=== PATIENT | male | born 1960 | race Two or more races ===

== ENCOUNTER 2021-08-14 09:58 | Inpatient (IN) | payer MEDICAID, OTHER ==
[~2021-08-14] VITALS: Ht 177.8 cm; Wt 112.6 kg
[2021-08-14 11:06] LABS: Basophils # (auto) 0 10 ^3/uL (0-0.2); Eosinophils # (auto) 0 10 ^3/uL (0-0.8); Monocytes # (auto) 0.4 10 ^3/uL (0-1.3); Neutrophils # (auto) 2.3 10 ^3/uL (1.6-8.6)
[2021-08-14 11:08] LABS: Basophils % (auto) 0.4 % (0.0-2.0); Hematocrit 44.1 % (41.0-53.0); Hemoglobin 14.7 g/dL (13.5-17.5); Lymphocytes # (auto) 0.7 10 ^3/uL (0.4-5.4); Mean Corpuscular Hgb Conc. 33.4 g/dL (32.0-36.0); Mean Corpuscular Volume 71.9 fL (80.0-100.0); Monocytes % (auto) 11.4 % (0.0-12.0); Neutrophils % (auto) 68.2 % (37.0-80.0); Nucleated Red Blood Cells % 0.4 %; Red Blood Cells 6.13 10^6/uL (4.5-5.90); White Blood Cell 3.4 10^3/uL (4.4-10.8)
[2021-08-14 11:18] LABS: Albumin 2.6 g/dL (3.4-5.0); Calcium 7.4 mg/dL (8.5-10.1); Potassium 3.5 mmol/L (3.5-5.1)
[2021-08-14 11:23] LABS: Bilirubin, Total 0.6 mg/dL (0.2-1.0); Total Protein 6.6 g/dL (6.4-8.2)
[2021-08-14] MEDS ORDERED: cefTRIAXone 1GM/50ML D5W 50 ML IV ONE (11:30)
[2021-08-14] MEDS ORDERED: DexAMETHasone SOD PHOS 10MG/1ML VIAL INJ IV ONE (11:30)
[2021-08-14] MEDS ORDERED: AZITHROMYCIN 500MG/ 250ML 250 ML IV ONE (11:30)
[2021-08-14] MEDS ORDERED: SODIUM CHLORIDE 0.9% 1,000 ML IVB ONE (11:30)
[2021-08-14] MEDS ORDERED: SODIUM CHLORIDE 0.9% 1,000 ML IV ONE (11:30)
[2021-08-14 12:04] LABS: INR 1.03 (0.9-1.15); Partial Thromboplastin Time 38.9 sec (23.6-33.0)
[2021-08-14 12:06] LABS: Magnesium 1.9 mg/dL (1.6-2.6)
[2021-08-14 12:46] LABS: Urine Bacteria FEW /hpf (None Seen); Urine Blood Negative /uL (Negative); Urine Specific Gravity 1.009 (1.001-1.035); Urine WBC 1 /hpf (0 - 3)
[2021-08-14] MEDS ORDERED: ZINC SULFATE 220mg CAP or TAB PO ONE (16:00)
[2021-08-14] MEDS ORDERED: ASCORBIC ACID 500 MG TAB PO ONE (16:00)
[2021-08-14] MEDS ORDERED: CHOLECALCIFEROL (VITD3) 2,000 UNIT CAP/TAB PO ONE (16:00)
[2021-08-14] MEDS ORDERED: MORPHINE SULFATE INJECTION 2 MG/ML SYRG IV PRN ×3 (16:15→16:45)
[2021-08-14] MEDS ORDERED: NITROGLYCERIN 0.4 MG SL TAB SL PRN ×2 (16:15→16:45)
[2021-08-14] MEDS ORDERED: DEXTROSE (50%) 50ML SYRG IV PRN (16:15)
[2021-08-14] MEDS ORDERED: LORazepam 0.5 MG TAB PO PRN (16:45)
[2021-08-14] MEDS: SOD CHL 0.45% 1,000 ML IV SCH (16:45)
[2021-08-14] MEDS ORDERED: HYDROcodone-ACET 5/325MG TAB PO PRN (16:45)
[2021-08-14] MEDS ORDERED: DOCUSATE SOD 100 MG CAP PO PRN (16:45)
[2021-08-14] MEDS ORDERED: ALUM & MAG HYDROX-SIMETH LIQ(MAALOX) 30 ML PO PRN (16:45)
[2021-08-14] MEDS ORDERED: ONDANSETRON HCL 4 MG/2 ML VIAL IV PRN (16:45)
[2021-08-14] MEDS ORDERED: PROMETHAZINE W/CODEINE 5 ML ORAL SYRUP PO PRN (17:00)
[2021-08-14] MEDS ORDERED: hydrALAZINE HCL 20 MG/ML VL IV PRN (17:00)
[2021-08-14] MEDS ORDERED: PROMETHAZINE W/CODEINE 5 ML ORAL SYRUP PO ONE (17:00)
[2021-08-14] MEDS ORDERED: MEROPENEM 1GM IVPB 100 ML IV ONE (17:00)
[2021-08-14] MEDS ORDERED: FAMOTIDINE (10MG/ML) 2ML VL IV ONE (17:00)
[2021-08-14] MEDS: ACCU-CHEK COMFORT CURVE STRIP VI SCH ×2 (17:41→21:06)
[2021-08-14] MEDS ORDERED: levoFLOXacin 750MG 150 ML IV ONE (18:00)
[2021-08-14 18:01] VITALS: BP 129/84
[2021-08-14 18:10] VITALS: BP 129/84
[2021-08-14] MEDS ORDERED: PNEUMOCOCCAL VACC POLYS 25 MCG/0.5 ML VIAL IM ONE (18:30)
[2021-08-14] MEDS ORDERED: LISI20TA28 PO (18:41)
[2021-08-14] MEDS ORDERED: POM SC (18:41)
[2021-08-14] MEDS: InsuLIN REG 1unit/0.01ml Soln (100units/ml) SC SCH ×2 (18:47→21:12)
[2021-08-14 19:22] LABS: Alcohol, Urine < 3.0 mg/dL (0-10); Amphetamine Screen, Urine NEGATIVE (NEGATIVE); Barbiturate Scree,Urine NEGATIVE (NEGATIVE); Benzodiazephine Screen, Urine NEGATIVE (NEGATIVE); Cannabinoid Screen, Urine NEGATIVE (NEGATIVE); Cocaine Screen, Urine NEGATIVE (NEGATIVE); Opiate Scree,Urine NEGATIVE (NEGATIVE); Phencyclidine Screen, Urine NEGATIVE (NEGATIVE)
[2021-08-14 19:41] LABS: Cholesterol 66 mg/dL (< 200)
[2021-08-14 19:43] LABS: HDL Cholesterol 15 mg/dL (40-59); LDL Cholesterol 40 mg/dL (< 100); Triglycerides 99 mg/dL (< 150)
[2021-08-14 20:27] LABS: Thyroid Stimulating Hormone 0.68 uIU/mL (0.358-3.74)
[2021-08-14] MEDS: ATORVASTATIN 20 MG TAB PO SCH (21:17)
[2021-08-14] MEDS: ENOXAPARIN SOD 40 MG/0.4 ML SYRINGE SC SCH (21:18)
[2021-08-14 22:00] VITALS: BP 129/80
[2021-08-14] MEDS: BUDESONIDE (INHALATION) 180 MCG IH IN SCH (23:47)
[2021-08-14] MEDS: ALBUTEROL SULF HFA 90MCG INH 200DOSE IN PRN (23:48)
[2021-08-15] MEDS: MEROPENEM 1GM IVPB 100 ML IV SCH ×2 (00:22→11:34)
[2021-08-15 05:00] VITALS: BP 116/80
[2021-08-15] MEDS: ACCU-CHEK COMFORT CURVE STRIP VI SCH ×4 (06:30→22:07)
[2021-08-15] MEDS: InsuLIN REG 1unit/0.01ml Soln (100units/ml) SC SCH ×4 (06:35→22:00)
[2021-08-15 07:04] LABS: Basophils # (auto) 0 10 ^3/uL (0-0.2); Basophils % (auto) 0.2 % (0.0-2.0); Eosinophils # (auto) 0 10 ^3/uL (0-0.8); Hemoglobin 14.6 g/dL (13.5-17.5); Neutrophils # (auto) 1.9 10 ^3/uL (1.6-8.6); White Blood Cell 3.3 10^3/uL (4.4-10.8)
[2021-08-15] MEDS: ALBUTEROL SULF HFA 90MCG INH 200DOSE IN PRN (07:05)
[2021-08-15] MEDS: BUDESONIDE (INHALATION) 180 MCG IH IN SCH ×2 (07:05→23:22)
[2021-08-15 07:06] LABS: Hematocrit 45.7 % (41.0-53.0); Neutrophils % (auto) 59.1 % (37.0-80.0); Nucleated Red Blood Cells % 0.1 %; Red Blood Cells 6.35 10^6/uL (4.5-5.90); Red Cell Distribution Width 14.8 % (11.8-14.3)
[2021-08-15 07:08] LABS: Lymphocytes # (auto) 0.8 10 ^3/uL (0.4-5.4); Lymphocytes % (auto) 24.2 % (10.0-50.0); Mean Corpuscular Volume 71.9 fL (80.0-100.0); Monocytes # (auto) 0.5 10 ^3/uL (0-1.3); Monocytes % (auto) 16.5 % (0.0-12.0)
[2021-08-15 07:19] LABS: Albumin 2.3 g/dL (3.4-5.0); Calcium 7.8 mg/dL (8.5-10.1); Magnesium 2.2 mg/dL (1.6-2.6); Potassium 4.2 mmol/L (3.5-5.1); Uric Acid 4.3 mg/dL (3.5-7.2)
[2021-08-15 07:23] LABS: BUN/Creatinine Ratio 12.8; Bilirubin, Total 0.4 mg/dL (0.2-1.0); INR 1.06 (0.9-1.15); Partial Thromboplastin Time 37.3 sec (23.6-33.0); Phosphorus 2.3 mg/dL (2.5-4.90); Total Protein 6.4 g/dL (6.4-8.2)
[2021-08-15 09:00] VITALS: BP 125/83
[2021-08-15] MEDS: SOD CHL 0.45% 1,000 ML IV SCH (09:25)
[2021-08-15] MEDS ORDERED: FAMOTIDINE (10MG/ML) 2ML VL IV SCH (10:00)
[2021-08-15 11:17] VITALS: BP 128/81
[2021-08-15] MEDS: ENOXAPARIN SOD 40 MG/0.4 ML SYRINGE SC SCH ×2 (11:34→22:07)
[2021-08-15] MEDS: DexAMETHasone SOD PHOS 10MG/1ML VIAL INJ IV SCH (11:34)
[2021-08-15] MEDS: levoFLOXacin 750MG 150 ML IV SCH (11:37)
[2021-08-15] MEDS: ASPirin 81 mg TAB PO SCH (12:02)
[2021-08-15] MEDS: CHOLECALCIFEROL (VITD3) 2,000 UNIT CAP/TAB PO SCH (12:03)
[2021-08-15] MEDS: ASCORBIC ACID 1,000 MG TAB PO SCH (12:03)
[2021-08-15] MEDS: ZINC SULFATE 220mg CAP or TAB PO SCH (12:03)
[2021-08-15 13:00] VITALS: BP 125/72
[2021-08-15] MEDS ORDERED: REMDESIVIR PER PHARMACY 0 ML IV SCH (13:15)
[2021-08-15] MEDS ORDERED: REMDESIVIR 200 MG in NS 210ml LOADING DOSE ADULT IV ONE (15:00)
[2021-08-15] MEDS ORDERED: guaiFENesin-DM 100/10mg/5ml SYR PO PRN (16:30)
[2021-08-15 17:00] VITALS: BP 124/77
[2021-08-15 22:00] VITALS: BP 123/81
[2021-08-15] MEDS: FAMOTIDINE 20 MG TAB PO SCH (22:07)
[2021-08-15] MEDS: ATORVASTATIN 20 MG TAB PO SCH (22:07)
[2021-08-16 05:21] VITALS: BP 116/77
[2021-08-16] MEDS: ACCU-CHEK COMFORT CURVE STRIP VI SCH ×4 (06:14→22:00)
[2021-08-16] MEDS: InsuLIN REG 1unit/0.01ml Soln (100units/ml) SC SCH ×4 (06:14→22:15)
[2021-08-16 08:22] LABS: Potassium 4.3 mmol/L (3.5-5.1)
[2021-08-16 08:28] LABS: Albumin 2.3 g/dL (3.4-5.0); BUN/Creatinine Ratio 16.7; Calcium 8.2 mg/dL (8.5-10.1)
[2021-08-16 08:30] LABS: Bilirubin, Total 0.4 mg/dL (0.2-1.0); Total Protein 5.8 g/dL (6.4-8.2)
[2021-08-16 08:41] VITALS: BP 111/71
[2021-08-16] MEDS: DexAMETHasone SOD PHOS 10MG/1ML VIAL INJ IV SCH (08:48)
[2021-08-16] MEDS: ZINC SULFATE 220mg CAP or TAB PO SCH (08:49)
[2021-08-16] MEDS: levoFLOXacin 750MG 150 ML IV SCH (08:49)
[2021-08-16] MEDS: ENOXAPARIN SOD 40 MG/0.4 ML SYRINGE SC SCH ×2 (08:49→22:00)
[2021-08-16] MEDS: ASPirin 81 mg TAB PO SCH (08:50)
[2021-08-16] MEDS: ASCORBIC ACID 1,000 MG TAB PO SCH (08:50)
[2021-08-16] MEDS: FUROSEMIDE 20 MG TAB PO SCH (08:50)
[2021-08-16] MEDS: CHOLECALCIFEROL (VITD3) 2,000 UNIT CAP/TAB PO SCH (08:51)
[2021-08-16] MEDS: FAMOTIDINE 20 MG TAB PO SCH ×2 (08:51→22:00)
[2021-08-16] MEDS ORDERED: IVERMECTIN 3 MG TAB PO SCH (10:00)
[2021-08-16 10:59] LABS: Free T3 2.08 pg/mL (2.3-4.2); Free T4 (Free Thyroxine) 0.89 ng/dL (0.89-1.76)
[2021-08-16 12:41] VITALS: BP 112/81
[2021-08-16] MEDS ORDERED: DEXTROSE (50%) 50ML SYRG IV PRN (13:00)
[2021-08-16 14:05] LABS: Hepatitis A Ab IgM Negative
[2021-08-16 14:21] LABS: Hepatitis B Core IgM Negative
[2021-08-16 14:23] LABS: Hepatitis C Antibody Negative (Negative)
[2021-08-16] MEDS: BUDESONIDE (INHALATION) 180 MCG IH IN SCH ×2 (15:12→22:18)
[2021-08-16] MEDS: ALBUTEROL SULF HFA 90MCG INH 200DOSE IN PRN ×2 (15:12→23:27)
[2021-08-16] MEDS: REMDESIVIR 100mg 100 MG in SODIUM CHL 0.9% 230 ML IV SCH (15:51)
[2021-08-16 16:39] VITALS: BP 118/79
[2021-08-16 20:00] VITALS: BP 118/83
[2021-08-16] MEDS: ATORVASTATIN 20 MG TAB PO SCH (22:00)
[2021-08-16] MEDS: INSULIN LANTUS (GLARGINE) 1 /0.01ml (100units/ml) SC SCH (22:15)
[2021-08-17 05:00] VITALS: BP 125/78
[2021-08-17] MEDS: ACCU-CHEK COMFORT CURVE STRIP VI SCH ×4 (06:18→22:21)
[2021-08-17] MEDS: InsuLIN REG 1unit/0.01ml Soln (100units/ml) SC SCH ×4 (07:00→22:28)
[2021-08-17 08:04] LABS: Potassium 4.5 mmol/L (3.5-5.1)
[2021-08-17 08:15] LABS: Albumin 2.5 g/dL (3.4-5.0); BUN/Creatinine Ratio 20.9; Bilirubin, Total 0.4 mg/dL (0.2-1.0); Total Protein 5.9 g/dL (6.4-8.2)
[2021-08-17 09:00] VITALS: BP 120/78
[2021-08-17] MEDS: BUDESONIDE (INHALATION) 180 MCG IH IN SCH ×2 (09:11→20:48)
[2021-08-17] MEDS: ALBUTEROL SULF HFA 90MCG INH 200DOSE IN PRN ×2 (09:11→20:49)
[2021-08-17] MEDS: ENOXAPARIN SOD 40 MG/0.4 ML SYRINGE SC SCH ×2 (10:08→22:21)
[2021-08-17] MEDS: levoFLOXacin 500 MG TAB PO SCH (10:08)
[2021-08-17] MEDS: ZINC SULFATE 220mg CAP or TAB PO SCH (10:08)
[2021-08-17] MEDS: DexAMETHasone SOD PHOS 10MG/1ML VIAL INJ IV SCH (10:08)
[2021-08-17] MEDS: ASCORBIC ACID 1,000 MG TAB PO SCH (10:08)
[2021-08-17] MEDS: ASPirin 81 mg TAB PO SCH (10:08)
[2021-08-17] MEDS: FAMOTIDINE 20 MG TAB PO SCH ×2 (10:08→22:21)
[2021-08-17] MEDS: CHOLECALCIFEROL (VITD3) 2,000 UNIT CAP/TAB PO SCH (10:09)
[2021-08-17] MEDS: FUROSEMIDE 20 MG TAB PO SCH (10:09)
[2021-08-17] MEDS: INSULIN LANTUS (GLARGINE) 1 /0.01ml (100units/ml) SC SCH ×2 (10:33→22:28)
[2021-08-17 13:00] VITALS: BP 118/71
[2021-08-17] MEDS: REMDESIVIR 100mg 100 MG in SODIUM CHL 0.9% 230 ML IV SCH (15:30)
[2021-08-17 17:00] VITALS: BP_SYST 135; BP_SYST 152; BP_DIAS 81; BP_DIAS 86
[2021-08-17 22:00] VITALS: BP 120/77
[2021-08-17] MEDS: ATORVASTATIN 20 MG TAB PO SCH (22:21)
[2021-08-18 05:00] VITALS: BP 124/79
[2021-08-18] MEDS: ACCU-CHEK COMFORT CURVE STRIP VI SCH ×4 (06:09→22:00)
[2021-08-18] MEDS: InsuLIN REG 1unit/0.01ml Soln (100units/ml) SC SCH ×4 (06:09→22:04)
[2021-08-18 07:24] LABS: Hemoglobin 14.8 g/dL (13.5-17.5); Mean Corpuscular Hemoglobin 22.9 pg (28.0-32.0)
[2021-08-18 07:27] LABS: Mean Corpuscular Hgb Conc. 32.1 g/dL (32.0-36.0); Mean Corpuscular Volume 71.4 fL (80.0-100.0); Red Blood Cells 6.44 10^6/uL (4.5-5.90); Red Cell Distribution Width 14.2 % (11.8-14.3); White Blood Cell 5.8 10^3/uL (4.4-10.8)
[2021-08-18 07:30] LABS: Basophils % (manual) 0 (0.0-2.0); Blast Cells 0; Eosinophils % (manual) 0 (0-7); Metamyelocytes % 0; Myelocytes % 0; Promyelocytes % 0; Reactive Lymphocytes 0
[2021-08-18 07:46] LABS: Potassium 4.4 mmol/L (3.5-5.1)
[2021-08-18 07:50] LABS: Band Neutrophils % (manual) 1; Lymphocytes % (manual) 13 (10.0-50.0); Monocytes % (manual) 12 (0-12)
[2021-08-18 07:53] LABS: Albumin 2.6 g/dL (3.4-5.0); BUN/Creatinine Ratio 23.3; Bilirubin, Total 0.6 mg/dL (0.2-1.0); CRP High Sensitivity 0.43 mg/dL (< 0.3); Total Protein 6.2 g/dL (6.4-8.2)
[2021-08-18] MEDS ORDERED: ZINC220T6 PO (08:36)
[2021-08-18] MEDS ORDERED: LEVO-28 PO (08:36)
[2021-08-18] MEDS ORDERED: PANT40TA2 PO (08:36)
[2021-08-18] MEDS ORDERED: ASCO10003 PO (08:36)
[2021-08-18] MEDS ORDERED: CHOL1CAP47 PO (08:36)
[2021-08-18] MEDS ORDERED: ASPI1TAB20 PO (08:36)
[2021-08-18] MEDS ORDERED: DEX4T PO (08:36)
[2021-08-18] MEDS ORDERED: ALBUAER3 IN (08:36)
[2021-08-18] MEDS: ALBUTEROL SULF HFA 90MCG INH 200DOSE IN PRN ×2 (08:49→21:35)
[2021-08-18] MEDS: BUDESONIDE (INHALATION) 180 MCG IH IN SCH ×2 (08:49→21:35)
[2021-08-18 09:00] VITALS: BP 138/85
[2021-08-18] MEDS: ENOXAPARIN SOD 40 MG/0.4 ML SYRINGE SC SCH ×2 (09:58→22:01)
[2021-08-18] MEDS: levoFLOXacin 500 MG TAB PO SCH (09:59)
[2021-08-18] MEDS: ZINC SULFATE 220mg CAP or TAB PO SCH (09:59)
[2021-08-18] MEDS: ASPirin 81 mg TAB PO SCH (09:59)
[2021-08-18] MEDS: FUROSEMIDE 20 MG TAB PO SCH (09:59)
[2021-08-18] MEDS: FAMOTIDINE 20 MG TAB PO SCH ×2 (09:59→22:00)
[2021-08-18] MEDS: ASCORBIC ACID 1,000 MG TAB PO SCH (09:59)
[2021-08-18] MEDS: CHOLECALCIFEROL (VITD3) 2,000 UNIT CAP/TAB PO SCH (09:59)
[2021-08-18] MEDS: DexAMETHasone SOD PHOS 10MG/1ML VIAL INJ IV SCH (10:00)
[2021-08-18] MEDS: INSULIN LANTUS (GLARGINE) 1 /0.01ml (100units/ml) SC SCH ×2 (10:46→22:04)
[2021-08-18 12:30] VITALS: BP 131/84
[2021-08-18] MEDS: REMDESIVIR 100mg 100 MG in SODIUM CHL 0.9% 230 ML IV SCH (15:14)
[2021-08-18 15:30] VITALS: BP 131/84
[2021-08-18 17:00] VITALS: BP 130/86
[2021-08-18 21:28] VITALS: BP 119/76
[2021-08-18] MEDS: ATORVASTATIN 20 MG TAB PO SCH (22:00)
[2021-08-19 05:00] VITALS: BP 107/75
[2021-08-19] MEDS: ACCU-CHEK COMFORT CURVE STRIP VI SCH ×4 (06:24→22:15)
[2021-08-19] MEDS: InsuLIN REG 1unit/0.01ml Soln (100units/ml) SC SCH ×4 (06:33→22:21)
[2021-08-19 06:56] LABS: Albumin 2.6 g/dL (3.4-5.0); BUN/Creatinine Ratio 27.2; Potassium 4.6 mmol/L (3.5-5.1)
[2021-08-19 06:58] LABS: Bilirubin, Total 0.7 mg/dL (0.2-1.0)
[2021-08-19] MEDS: ALBUTEROL SULF HFA 90MCG INH 200DOSE IN PRN (07:13)
[2021-08-19] MEDS: BUDESONIDE (INHALATION) 180 MCG IH IN SCH (07:14)
[2021-08-19 09:00] VITALS: BP 116/73
[2021-08-19] MEDS: FAMOTIDINE 20 MG TAB PO SCH ×2 (09:21→22:15)
[2021-08-19] MEDS: CHOLECALCIFEROL (VITD3) 2,000 UNIT CAP/TAB PO SCH (09:21)
[2021-08-19] MEDS: ASCORBIC ACID 1,000 MG TAB PO SCH (09:21)
[2021-08-19] MEDS: ASPirin 81 mg TAB PO SCH (09:21)
[2021-08-19] MEDS: levoFLOXacin 500 MG TAB PO SCH (09:21)
[2021-08-19] MEDS: FUROSEMIDE 20 MG TAB PO SCH (09:21)
[2021-08-19] MEDS: ZINC SULFATE 220mg CAP or TAB PO SCH (09:22)
[2021-08-19] MEDS: DexAMETHasone SOD PHOS 10MG/1ML VIAL INJ IV SCH (09:22)
[2021-08-19] MEDS: ENOXAPARIN SOD 40 MG/0.4 ML SYRINGE SC SCH ×2 (09:22→22:15)
[2021-08-19] MEDS: INSULIN LANTUS (GLARGINE) 1 /0.01ml (100units/ml) SC SCH ×2 (09:49→22:21)
[2021-08-19 13:00] VITALS: BP 121/76
[2021-08-19] MEDS: REMDESIVIR 100mg 100 MG in SODIUM CHL 0.9% 230 ML IV SCH (14:57)
[2021-08-19 17:00] VITALS: BP 117/76
[2021-08-19 22:00] VITALS: BP 124/83
[2021-08-19] MEDS: ATORVASTATIN 20 MG TAB PO SCH (22:15)
[2021-08-20] MEDS: ALBUTEROL SULF HFA 90MCG INH 200DOSE IN PRN ×2 (00:05→06:18)
[2021-08-20] MEDS: BUDESONIDE (INHALATION) 180 MCG IH IN SCH ×2 (00:05→06:18)
[2021-08-20 05:00] VITALS: BP 119/81
[2021-08-20] MEDS: ACCU-CHEK COMFORT CURVE STRIP VI SCH ×3 (06:28→17:00)
[2021-08-20] MEDS: InsuLIN REG 1unit/0.01ml Soln (100units/ml) SC SCH ×3 (06:31→17:00)
[2021-08-20 06:59] LABS: Basophils # (auto) 0 10 ^3/uL (0-0.2); Basophils % (auto) 0.1 % (0.0-2.0); Eosinophils # (auto) 0 10 ^3/uL (0-0.8); Lymphocytes # (auto) 1.3 10 ^3/uL (0.4-5.4); Nucleated Red Blood Cells % 0.1 %; Red Cell Distribution Width 14.4 % (11.8-14.3)
[2021-08-20 07:02] LABS: Eosinophils % (auto) 0.1 % (0.0-7.0); Hematocrit 46.4 % (41.0-53.0); Hemoglobin 15.3 g/dL (13.5-17.5); Mean Corpuscular Hemoglobin 23.8 pg (28.0-32.0); Mean Corpuscular Volume 72.1 fL (80.0-100.0); Monocytes # (auto) 1.5 10 ^3/uL (0-1.3); Monocytes % (auto) 15.7 % (0.0-12.0); Neutrophils # (auto) 6.6 10 ^3/uL (1.6-8.6); Neutrophils % (auto) 70.1 % (37.0-80.0); Red Blood Cells 6.43 10^6/uL (4.5-5.90); White Blood Cell 9.5 10^3/uL (4.4-10.8)
[2021-08-20 07:14] LABS: Albumin 2.6 g/dL (3.4-5.0); Calcium 8.5 mg/dL (8.5-10.1); Potassium 4.3 mmol/L (3.5-5.1)
[2021-08-20 07:19] LABS: BUN/Creatinine Ratio 25.8; Bilirubin, Total 0.8 mg/dL (0.2-1.0); Total Protein 6.1 g/dL (6.4-8.2)
[2021-08-20 08:43] VITALS: BP 120/78
[2021-08-20] MEDS: DexAMETHasone SOD PHOS 10MG/1ML VIAL INJ IV SCH (10:14)
[2021-08-20] MEDS: ZINC SULFATE 220mg CAP or TAB PO SCH (10:15)
[2021-08-20] MEDS: FUROSEMIDE 20 MG TAB PO SCH (10:15)
[2021-08-20] MEDS: ASPirin 81 mg TAB PO SCH (10:15)
[2021-08-20] MEDS: CHOLECALCIFEROL (VITD3) 2,000 UNIT CAP/TAB PO SCH (10:16)
[2021-08-20] MEDS: ASCORBIC ACID 1,000 MG TAB PO SCH (10:16)
[2021-08-20] MEDS: FAMOTIDINE 20 MG TAB PO SCH (10:16)
[2021-08-20] MEDS: levoFLOXacin 500 MG TAB PO SCH (10:16)
[2021-08-20] MEDS: ENOXAPARIN SOD 40 MG/0.4 ML SYRINGE SC SCH (10:17)
[2021-08-20] MEDS: INSULIN LANTUS (GLARGINE) 1 /0.01ml (100units/ml) SC SCH (10:18)
[2021-08-20 12:36] VITALS: BP 120/78
[2021-08-20 13:00] VITALS: BP 132/87
== END 2021-08-20 17:45 | disposition home or self-care (01) | DRG 137 ==
LOC: ER 09:58 → EDBD 09:58 → OVERFLOW 16:06 → EAST 17:12
PROVIDERS: ADMIT Hospitalist; ATTEND Internal Medicine
PROC: XW033E5 Introduction of Remdesivir Anti-infective into Peripheral Vein, Percutaneous Approach, New Technology Group 5 (ICD-10-PCS; principal; 2021-08-15)
DX: U07.1 COVID-19 (principal); J96.01 Acute respiratory failure with hypoxia; J12.82 Pneumonia due to coronavirus disease 2019; E44.0 Moderate protein-calorie malnutrition; D69.6 Thrombocytopenia, unspecified; E66.01 Morbid (severe) obesity due to excess calories; E78.5 Hyperlipidemia, unspecified; I10 Essential (primary) hypertension; Z68.37 Body mass index [BMI] 37.0-37.9, adult; E11.65 Type 2 diabetes mellitus with hyperglycemia; R74.8 Abnormal levels of other serum enzymes; R74.01 Elevation of levels of liver transaminase levels; Z28.21 Immunization not carried out because of patient refusal; Z79.4 Long term (current) use of insulin; Z91.19 Patient's noncompliance with other medical treatment and regimen
CPT/HCPCS: 36415; 36600; 71045; 71275; 80053; 80061; 80074; 80307; 81001; 82306; 82728; 82805; 82962; 83036; 83605; 83615; 83735; 83880; 84100; 84439; 84443; 84481; 84484; 84550; 85007; 85025; 85027; 85379; 85610; 85652; 85730; 86141; 86635; 86641; 87040; 87070; 87086; 87205; 87426; 87804; 93005; 94640; 96365; 96366; 96367; 96375; G0378; J0696; J1100; J1815; J1956; J2185; J3490

== ENCOUNTER 2024-07-03 10:52 | Emergency (ER) | payer OTHER, MEDICAID ==
[~2024-07-03] VITALS: Ht 177.8 cm; Wt 129.8 kg
[~2024-07-03 10:52] MED LIST: ALBUAER3 IN; ASCO10003 PO; ASPI1TAB20 PO; CHOL1CAP47 PO; DEX4T PO; LEVO500T91 PO; LISI20TA56 PO; PANT40TA2 PO; POM SC; ZINC220T6 PO
[2024-07-03 11:53] VITALS: TEMP 98.2; O2SAT 95
[2024-07-03 12:40] VITALS: BP 148/84; PULSE 105; RESP 18
[2024-07-03] MEDS: MORPHINE SULFATE INJ 2 MG/ml SYRG IM ONE (12:40)
== END 2024-07-03 12:52 | disposition left against medical advice (07) ==
LOC: ER 10:52
DX: S68.012A Complete traumatic metacarpophalangeal amputation of left thumb, initial encounter (principal); E11.9 Type 2 diabetes mellitus without complications; I10 Essential (primary) hypertension; Z79.4 Long term (current) use of insulin; Z79.52 Long term (current) use of systemic steroids; Z79.82 Long term (current) use of aspirin; Z79.899 Other long term (current) drug therapy; Z98.890 Other specified postprocedural states; W26.8XXA Contact with other sharp object(s), not elsewhere classified, initial encounter; Y93.89 Activity, other specified; Y92.89 Other specified places as the place of occurrence of the external cause; Y99.8 Other external cause status
CPT/HCPCS: 96372; 99283; J2270